=== PATIENT | female | born 1930 | race Caucasian/White ===

== ENCOUNTER 2019-07-10 15:24 | Inpatient (IN) | payer MEDICARE ==
[~2019-07-10] VITALS: Ht 165.1 cm; Wt 52.2 kg
--- NOTE | 2019-07-10 15:39 | NUR ---
PT STATES SHE HAS L3 FRACTURE AND HAS CHRONIC PAIN
[2019-07-10 15:52] LABS: BASOPHILS 0 % (0-2); EOSINOPHILS 0.1 % (0-7); HEMOGLOBIN 17.3 g/dL (12-16); IMMATURE GRANULOCYTES 0.3 % (0-5); LYMPHOCYTES 9.9 % (15-50); MCH 29.7 pg (26.0-34.0); MCHC 34.6 g/dL (31.0-37.0); MCV 85.8 fL (80.0-100.0); MEAN PLATELET VOLUME 9.4 fL (7.4-10.4); MONOCYTES 9.2 % (2-11); NEUTROPHILS 80.5 % (40-80); PLATELET COUNT 154 10x3/uL (130-400); RBC 5.83 10x6/uL (4.00-5.40); RDW 13.6 % (11.5-14.5); WBC 12.7 10x3/uL (4.8-10.8)
--- NOTE | 2019-07-10 16:08 | NUR ---
PT TO CT
[2019-07-10 16:15] LABS: CALC OSMOLALITY 291 mosm/kg (275-300); CALCIUM 9.3 mg/dL (8.5-10.1); CARBON DIOXIDE 24.8 mmol/L (21.0-32.0); CHLORIDE - SERUM 101 mmol/L (98-107); GLUCOSE 133 mg/dL (74-106); POTASSIUM - SERUM 4.1 mmol/L (3.5-5.1); SODIUM 141 mmol/L (136-145); UREA NITROGEN 39 mg/dL (7-18); eGFR NON AFRICAN AMERICAN 56 mL/min (90-120)
[2019-07-10 16:21] LABS: ALBUMIN 3.6 g/dL (3.4-5.0); ALKALINE PHOSPHATASE 88 U/L (30-120); ALT (SGPT) 30 U/L (10-68); PROTEIN - SERUM 6.8 g/dL (6.4-8.2)
[2019-07-10 16:40] LABS: APTT 29.1 SECONDS (22.8-39.4); INR 0.99 (0.85-1.17); PROTIME 13.1 SECONDS (11.6-15.0)
--- NOTE | 2019-07-10 16:44 | NUR ---
URINE TO LAB
[2019-07-10 16:54] LABS: CKMB 7.5 U/L (0.0-3.6); TROPONIN-I < 0.017 ng/mL (0.000-0.060)
[2019-07-10 16:55] LABS: GLUCOSE NEGATIVE (NEGATIVE); KETONE SMALL mg/dL (NEGATIVE); NITRITE POSITIVE (NEGATIVE)
[2019-07-10 16:56] LABS: BILIRUBIN NEGATIVE (NEGATIVE); UROBILINOGEN NORMAL (NORMAL)
[2019-07-10 16:57] LABS: EPITHELIAL CELLS 0-5 /hpf (0-5); RED CELLS - URINE OCC /hpf (0-5)
[2019-07-10 17:04] LABS: BACTERIA MODERATE /hpf (NEGATIVE)
[2019-07-10 17:49] VITALS: BP 128/68
[2019-07-10 18:09] VITALS: BP 117/69
[2019-07-10 18:21] VITALS: BP 104/49
--- NOTE | 2019-07-10 19:00 | NUR ---
PT RESTING ON BED, VISITORS AT BEDSIDE. PT AWAKE AND ALERT.
--- NOTE | 2019-07-10 19:15 | NUR ---
PT RESTING ON BED, PT AND VISITORS UPDATED ON PLAN OF CARE.
--- NOTE | 2019-07-10 19:50 | NUR ---
REPORT GIVEN TO CARLEE LOUIE
--- NOTE | 2019-07-10 19:56 | NUR ---
PATIENT ARRIVED FROM ER. PATIENT IS ALERT AND ORIENTED, RESTING COMFORTABLY IN BED. RESPIRATIONS ARE EVEN AND UNLABORED. NO S/S OF DISTRESS. NO C/O PAIN. CALL LIGHT WITHIN REACH. WILL CPOC.
--- NOTE | 2019-07-10 20:20 | NUR ---
PATIENT ATE TURKEY SANDWICH.
[2019-07-10 20:28] VITALS: BP 131/55
--- NOTE | 2019-07-10 21:00 | NUR ---
INFORMED BY CHRONOMETER ADJUSTER THAT THE PATIENT HAS BEEN NORMAL SINUS SINCE SHE ARRIVED ON FLOOR.
--- NOTE | 2019-07-10 23:50 | NUR ---
PATIENT RESTING COMFORTABLY IN BED. RESPIRATIONS ARE EVEN AND UNLABORED. NO S/S OF DISTRESS. CALL LIGHT WITHIN REACH. WILL CPOC.
[2019-07-11 00:26] VITALS: BP 102/52
--- NOTE | 2019-07-11 04:00 | NUR ---
INFORMED PEWTER CASTER THAT IN APPRXIMATELY ONE HOUR I WILL NEED MORE CARDIZEM FROM MY NEW ADMISSION IN 2113.
--- NOTE | 2019-07-11 04:20 | NUR ---
PATIENT REMAINS NORMAL SINUS.
[2019-07-11 05:54] VITALS: BP 105/53
[2019-07-11 06:48] LABS: BASOPHILS 0.1 % (0-2); EOSINOPHILS 0.1 % (0-7); HEMATOCRIT 43.4 % (36.0-48.0); IMMATURE GRANULOCYTES 0.3 % (0-5); LYMPHOCYTES 15.3 % (15-50); MCH 29.6 pg (26.0-34.0); MCHC 34.6 g/dL (31.0-37.0); MCV 85.8 fL (80.0-100.0); MEAN PLATELET VOLUME 9.4 fL (7.4-10.4); MONOCYTES 9.4 % (2-11); NEUTROPHILS 74.8 % (40-80); PLATELET COUNT 167 10x3/uL (130-400); RBC 5.06 10x6/uL (4.00-5.40); RDW 13.8 % (11.5-14.5); WBC 9.9 10x3/uL (4.8-10.8)
[2019-07-11 07:08] LABS: ALBUMIN 2.9 g/dL (3.4-5.0); BILIRUBIN - TOTAL 0.91 mg/dL (0.2-1.3); CALCIUM 8.5 mg/dL (8.5-10.1); PROTEIN - SERUM 6.1 g/dL (6.4-8.2)
[2019-07-11 07:10] LABS: ANION GAP 15.4 mmol/L (8-16); POTASSIUM - SERUM 3.4 mmol/L (3.5-5.1)
[2019-07-11 08:34] VITALS: BP 101/57
[2019-07-11 11:50] VITALS: BP 108/54
[2019-07-11 13:20] LABS: T4 THYROXIN - FREE 1.26 ng/dL (0.76-1.46); THYROID STIMULATING HORMONE 3.3 uIU/mL (0.36-3.74)
--- NOTE | 2019-07-11 14:54 | NUR ---
Rehab Note- Acute Inpatient Rehab prescreen order received. The patient has an appropriate Dx for inpatient acute rehab, she does has pending Evals at this time. Will await completion to assess the patient's physical mobility at this time. Will follow at this time. Thank you for this referral! Luann Lino RN Clinical Liaison, [facility] Rehab
--- NOTE | 2019-07-11 14:55 | NUR ---
ANGELITA HELTON NOTIFIED OF ELEVATED D-DIMER.
--- NOTE | 2019-07-11 16:12 | MORECARE ---
CASE MANAGEMENT DISCHARGE SUMMARY PATIENT: FLORENCIO HERNANDEZ UNIT: [id number] ADM DATE: 07/10/19 AGE: 88 : 32 SEX: F ROOM/BED: D.3124 AUTHOR: RERE,DOC PHYSICIAN: REFERRING PHYSICIAN: TIA ELENA MD DATE OF SERVICE: 07/11/19 Discharge Plan Patient Name: FLORENCIO HERNANDEZ Facility: [facility]:[place] : 1930 Planned Disposition: Inpatient Rehab Anticipated Discharge Date: 07/12/19 Discharge Date: Expected LOS: 2 Initial Reviewer: [email or web address] Initial Review Date: 07/11/2019 Generated: 07/11/19 5:11 pm DCPIA - Discharge Planning Initial Assessment Updated by [id number]: Carlos Arenas on 07/11/19 4:08 pm * Is the patient Alert and Oriented? Yes * How many steps to enter\exit or inside your home? * PCP NONE * Pharmacy [facility] * Preadmission Environment Home Alone * ADLs Independent * Equipment Cane Other Walker * Other Equipment LIFT CHAIR NO MEDICAL EQUIPMENT PROVIDER PREFERENCE * List name and contact numbers for known caregivers / representatives who currently or will assist patient after discharge: JUAN SINGH, FRIEND, INDIGO RHODES, ANNALISE, * Verbal permission to speak to the caregivers and representatives has been obtained from the patient. Yes * Community resources currently utilized None * Please name any agencies selected above. NONE * Additional services required to return to the preadmission environment? Yes * Can the patient safely return to the preadmission environment? Yes * Has this patient been hospitalized within the prior 30 days at any hospital? No Coverage Notice Reviewer: [id number] Mayela Arenas Notice Issued Date-Time: 07/11/2019 16:00 Notice Type: IM Discharge Notice Notice Delivered To: Patient Relationship to Patient: Industrial Maintenance Technician Name: Delivery Method: HAND - Hand Delivered Yesenia Days: Prior Verbal Notification: Recipient Understood Notice: Yes Recipient Signature: Yes Med Rec Note Co-signed by Attending: Coverage Notice Comment: Reviewer: [email or web address] Mayela Arenas Notice Issued Date-Time: 07/11/2019 15:34 Notice Type: Patient Choice Letter Notice Delivered To: Patient Relationship to Patient: Industrial Maintenance Technician Name: Delivery Method: HAND - Hand Delivered Yesenia Days: Prior Verbal Notification: Recipient Understood Notice: Yes Recipient Signature: Yes Med Rec Note Co-signed by Attending: Coverage Notice Comment: [facility] INPATIENT REHAB Patient Name: FLORENCIO HERNANDEZ Page [id number] at 1612 All edits/amendments must be made on the electronic document DICTATION DATE: 07/11/191610 PM HEAD COOK: OSKAR 07/11/191610 RPT#: [id number] DC DATE: STATUS: ADM IN [facility] [address] [place] [address] END OF REPORT
--- NOTE | 2019-07-11 16:22 | MORECARE ---
CASE MANAGEMENT DISCHARGE SUMMARY PATIENT: FLORENCIO HERNANDEZ UNIT: [id number] ADM DATE: 07/10/19 AGE: 88 : 32 SEX: F ROOM/BED: D.1387 AUTHOR: RERE,DOC PHYSICIAN: REFERRING PHYSICIAN: TIA ELENA MD DATE OF SERVICE: 07/11/19 Discharge Plan Patient Name: FLORENCIO HERNANDEZ [facility] [facility] 1930 Planned Disposition: Inpatient Rehab Anticipated Discharge Date: 07/12/19 Discharge Date: Expected LOS: 2 Initial Reviewer: [email or web address] Initial Review Date: 07/11/2019 Generated: 07/11/19 5:21 pm Comments DCP- Discharge Planning Updated by [email or web address]: Carlos Arenas on 07/11/19 3:[address] Patient Name: FLORENCIO HERNANDEZ Admission Status: ER Accout number: [id number] Admission Date: 07-10-2019 : 1930 Admission Diagnosis: Attending: TIA ELENA Current LOS: 1 Anticipated DC Date: 07-12-2019 Planned Disposition: Inpatient Rehab Primary Insurance: MEDICARE A & B PLANNED EXTERNAL PROVIDER: [facility] INPATIENT REHAB Discharge Planning Comments: CM RECEIVED ORDER FOR INPATIENT REHAB PRESCREEN. CM MET WITH PT IN ROOM TO DISCUSS DISCHARGE PLANNING AND NEEDS. PT REPORTS LIVING AT HOME INDEPENDENTLY AND ALONE. PT HAS CANE, LIFT CHAIR AND WALKER WITH NO MEDICAL EQUIPMENT PROVIDER PREFERENCE. PT HAS NO OUTSIDE SERVICES ASSISTING IN THE HOME. CM DISCUSSED AVAILABILITY OF HOME HEALTH, REHAB SERVICES AND MEDICAL EQUIPMENT. CM DISCUSSED INPATIENT REHAB PROVIDERS, LOCATIONS AND SERVICES. PT WOULD CONSIDER REHAB AT [facility], CHOICE SIGNED, REPORTS HER FRIEND WILL PICK HER UP FOR DISCHARGE HOME. IMPORTANT MESSAGE FROM MEDICARE PROVIDED AND EXPLAINED. CM WAITING THERAPY EVALUATIONS AND INPATIENT REHAB PRESCREENING FROM [facility] INPATIENT REHAB. Traveling Representative: Carlos Arenas DCPIA - Discharge Planning Initial Assessment Updated by [id number]: Carlos Arenas on 07/11/19 4:08 pm * Is the patient Alert and Oriented? Yes * How many steps to enter\exit or inside your home? * PCP NONE * Pharmacy [facility] * Preadmission Environment Home Alone * ADLs Independent * Equipment Cane Other Walker * Other Equipment LIFT CHAIR NO MEDICAL EQUIPMENT PROVIDER PREFERENCE * List name and contact numbers for known caregivers / representatives who currently or will assist patient after discharge: JUAN SINGH, FRIEND, INDIGO RHODES, FRIEND, * Verbal permission to speak to the caregivers and representatives has been obtained from the patient. Yes * Community resources currently utilized None * Please name any agencies selected above. NONE * Additional services required to return to the preadmission environment? Yes * Can the patient safely return to the preadmission environment? Yes * Has this patient been hospitalized within the prior 30 days at any hospital? No Coverage Notice Reviewer: [email or web address] Arenas Notice Issued Date-Time: 07/11/2019 16:00 Notice Type: IM Discharge Notice Notice Delivered To: Patient Relationship to Patient: Shampoo Person Name: Delivery Method: HAND - Hand Delivered Yesenia Days: Prior Verbal Notification: Recipient Understood Notice: Yes Recipient Signature: Yes Med Rec Note Co-signed by Attending: Coverage Notice Comment: Reviewer: WINNIE Arenas Notice Issued Date-Time: 07/11/2019 15:34 Notice Type: Patient Choice Letter Notice Delivered To: Patient Relationship to Patient: Shampoo Person Name: Delivery Method: HAND - Hand Delivered Yesenia Days: Prior Verbal Notification: Recipient Understood Notice: Yes Recipient Signature: Yes Med Rec Note Co-signed by Attending: Coverage Notice Comment: [facility] INPATIENT REH[facility] Last DP export: 07/11/19 3:12 p Patient Name: FLORENCIO HERNANDEZ Page [phone] at 1622 All edits/amendments must be made on the electronic document DICTATION DATE: 07/11/19 1621 SHRIMP HEADER: OSKAR 07/11/19 1621 RPT#: [id number] DC DATE: STATUS: ADM IN [facility] [address] [place] [address] END OF REPORT
[2019-07-11 16:36] VITALS: BP 115/56
--- NOTE | 2019-07-11 19:26 | NUR ---
RECEIVED BEDSIDE REPORT. PATIENT IS ALERT AND ORIENTED, RESTING COMFORTABLY IN BED. RESPIRATIONS ARE EVEN AND UNLABORED. NO S/S OF DISTRESS. NO C/O PAIN. CALL LIGHT WITHIN REACH. WILL CPOC.
[2019-07-11 21:03] VITALS: BP 134/56
--- NOTE | 2019-07-11 23:50 | NUR ---
PATIENT RESTING COMFORTABLY IN BED. RESPIRATIONS ARE EVEN AND UNLABORED. NO S/S OF DISTRESS. CALL LIGHT WITHIN REACH. WILL CPOC.
[2019-07-12 01:51] VITALS: BP 132/58
--- NOTE | 2019-07-12 05:26 | NUR ---
PATIENT GIVEN BATH AND LINENS CHANGED.
[2019-07-12 06:11] LABS: BASOPHILS 0.2 % (0-2); EOSINOPHILS 0.4 % (0-7); HEMATOCRIT 41.5 % (36.0-48.0); HEMOGLOBIN 13.8 g/dL (12-16); IMMATURE GRANULOCYTES 0.4 % (0-5); LYMPHOCYTES 24.4 % (15-50); MCH 28.7 pg (26.0-34.0); MCHC 33.3 g/dL (31.0-37.0); MCV 86.3 fL (80.0-100.0); MEAN PLATELET VOLUME 9.1 fL (7.4-10.4); MONOCYTES 10.5 % (2-11); NEUTROPHILS 64.1 % (40-80); PLATELET COUNT 164 10x3/uL (130-400); RBC 4.81 10x6/uL (4.00-5.40); RDW 13.7 % (11.5-14.5)
[2019-07-12 06:14] LABS: WBC 5.7 10x3/uL (4.8-10.8)
[2019-07-12 06:34] VITALS: BP 125/78
[2019-07-12 06:49] LABS: ANION GAP 11.3 mmol/L (8-16); CALCIUM 8.2 mg/dL (8.5-10.1); CARBON DIOXIDE 24.8 mmol/L (21.0-32.0); CREATININE - SERUM 0.8 mg/dL (0.6-1.3); POTASSIUM - SERUM 3.1 mmol/L (3.5-5.1)
[2019-07-12 08:33] VITALS: BP 119/57
--- NOTE | 2019-07-12 11:04 | NUR ---
UP OOB WITH PT ASSIST. CADIZEM GTT DCD PER DR. OLSON AND CHANED TO ORAL. WILL CONT. PLAN OF CARE.
[2019-07-12 11:37] VITALS: BP 106/58
[2019-07-12 14:14] VITALS: Ht 165.1 cm; Wt 52.2 kg
[2019-07-12 15:39] VITALS: BP 139/53
--- NOTE | 2019-07-12 15:49 | NUR ---
BLADDER SCAN [id number].
--- NOTE | 2019-07-12 19:34 | NUR ---
RECEIVED BEDSIDE REPORT. PATIENT IS ALERT AND ORIENTED, RESTING COMFORTABLY IN BED. RESPIRATIONS ARE EVEN AND UNLABORED. NO S/S OF DISTRESS. NO C/O PAIN. NEEDS MET. CALL LIGHT WITHIN REACH. WILL CPOC.
[2019-07-12 20:00] VITALS: BP 145/56
[2019-07-13] VITALS: BP 156/64
[2019-07-13 04:00] VITALS: BP 172/91
--- NOTE | 2019-07-13 04:23 | NUR ---
PATIENT BATHED AND LINEN CHANGED.
[2019-07-13 05:55] LABS: BASOPHILS 0.2 % (0-2); EOSINOPHILS 0.6 % (0-7); HEMATOCRIT 39.5 % (36.0-48.0); HEMOGLOBIN 13.3 g/dL (12-16); IMMATURE GRANULOCYTES 0.6 % (0-5); LYMPHOCYTES 21.3 % (15-50); MCHC 33.7 g/dL (31.0-37.0); MCV 86.2 fL (80.0-100.0); MONOCYTES 9.7 % (2-11); NEUTROPHILS 67.6 % (40-80); PLATELET COUNT 152 10x3/uL (130-400); RBC 4.58 10x6/uL (4.00-5.40); RDW 13.5 % (11.5-14.5); WBC 4.8 10x3/uL (4.8-10.8)
[2019-07-13 06:20] LABS: CALC OSMOLALITY 282 mosm/kg (275-300); CALCIUM 8.4 mg/dL (8.5-10.1); CARBON DIOXIDE 24.8 mmol/L (21.0-32.0); CHLORIDE - SERUM 109 mmol/L (98-107); CREATININE - SERUM 0.7 mg/dL (0.6-1.3); GLUCOSE 142 mg/dL (74-106); POTASSIUM - SERUM 3.8 mmol/L (3.5-5.1); SODIUM 142 mmol/L (136-145); eGFR NON AFRICAN AMERICAN 84 mL/min (90-120)
[2019-07-13 06:23] LABS: UREA NITROGEN 8 mg/dL (7-18)
--- NOTE | 2019-07-13 09:53 | NUR ---
PT AT BS. TELEMETRY SR. CALL LIGHT IN REACH. WILL CONT. PLAN OF CARE.
[2019-07-13 10:59] VITALS: BP 152/79
--- NOTE | 2019-07-13 13:46 | NUR ---
ANGELITA PADILLA APN TO CALL WITH NEW DISCHARGE ORDERS TO REHAB. I REVIEWED THE EMAR WITH HER AND DC THE ROCEPHRIN AND CHANGED ZOFRAN TO PO.
[2019-07-13] MEDS ORDERED: LOVENOX60 MG/0.6 SC (13:51)
[2019-07-13] MEDS ORDERED: CARDIZEM60 MG PO (13:51)
[2019-07-13 13:52] VITALS: BP 115/68
[2019-07-13] MEDS ORDERED: HUMULIN R100 UNIT/1 SC (13:53)
[2019-07-13] MEDS ORDERED: FLORAJEN3 CAPS460 MG PO (13:53)
[2019-07-13] MEDS ORDERED: LEVOFLOXACIN500 MG PO (13:55)
[2019-07-13] MEDS ORDERED: FLOMAX0.4 MG PO (13:57)
[2019-07-13] MEDS ORDERED: PROTONIX40 MG PO (13:57)
[2019-07-13] MEDS ORDERED: ACETAMINOPHEN325 MG PO (13:58)
[2019-07-13] MEDS ORDERED: ZOFRAN4 MG PO (13:58)
[2019-07-13] MEDS ORDERED: NICODERM (14:36)
--- NOTE | 2019-07-13 17:19 | NUR ---
D/C PTS L.AC PIV WITH CATHETER TIP FULLY INTACT. DISCHARGE TEACHING PROVIDING AND PAPERS SIGNED. PT VERBALIZED UNDERSTANDING AND DENIES ANY QUESTIONS OR CONCERNS. ALL BELONGINGS COLLECTED AND SENT WITH FAMILY. CALLED REPORT TO CARLEE JENKINS OF REHAB. D/C TELEMETRY AND RETURNED TO [facility]. NO FURTHER NEEDS. WILL TRANSPORT DOWN TO REHAB AT THIS TIME.
--- NOTE | 2019-07-14 08:32 | MORECARE ---
CASE MANAGEMENT DISCHARGE SUMMARY PATIENT: FLORENCIO HERNANDEZ UNIT: [id number] ADM DATE: 07/10/19 AGE: 88 : 32 SEX: F ROOM/BED: D.5186 AUTHOR: RERE,DOC PHYSICIAN: REFERRING PHYSICIAN: TIA ELENA MD DATE OF SERVICE: 07/14/19 Discharge Plan Patient Name: FLORENCIO HERNANDEZ [facility] [facility] 1930 Planned Disposition: Inpatient Rehab Anticipated Discharge Date: 07/12/19 Discharge Date: 07/13/2019 Expected LOS: 2 Initial Reviewer: [id number] Initial Review Date: 07/11/2019 Generated: 07/14/19 9:31 am Comments DCP- Discharge Planning Updated by [id number]: Carlos Arenas on 07/11/19 3:[address] Patient Name: FLORENCIO HERNANDEZ Admission Status: ER Accout number: [id number] Admission Date: 07-10-2019 : 1930 Admission Diagnosis: Attending: TIA ELENA Current LOS: 1 Anticipated DC Date: 07-12-2019 Planned Disposition: Inpatient Rehab Primary Insurance: MEDICARE A & B PLANNED EXTERNAL PROVIDER: [facility] INPATIENT REHAB Discharge Planning Comments: CM RECEIVED ORDER FOR INPATIENT REHAB PRESCREEN. CM MET WITH PT IN ROOM TO DISCUSS DISCHARGE PLANNING AND NEEDS. PT REPORTS LIVING AT HOME INDEPENDENTLY AND ALONE. PT HAS CANE, LIFT CHAIR AND WALKER WITH NO MEDICAL EQUIPMENT PROVIDER PREFERENCE. PT HAS NO OUTSIDE SERVICES ASSISTING IN THE HOME. CM DISCUSSED AVAILABILITY OF HOME HEALTH, REHAB SERVICES AND MEDICAL EQUIPMENT. CM DISCUSSED INPATIENT REHAB PROVIDERS, LOCATIONS AND SERVICES. PT WOULD CONSIDER REHAB AT [facility], CHOICE SIGNED, REPORTS HER FRIEND WILL PICK HER UP FOR DISCHARGE HOME. IMPORTANT MESSAGE FROM MEDICARE PROVIDED AND EXPLAINED. CM WAITING THERAPY EVALUATIONS AND INPATIENT REHAB PRESCREENING FROM [facility] INPATIENT REH[facility]. Care Taker: Carlos Arenas DCPIA - Discharge Planning Initial Assessment Updated by [id number]: Carlos Arenas on 07/11/19 4:08 pm * Is the patient Alert and Oriented? Yes * How many steps to enter\exit or inside your home? * PCP NONE * Pharmacy [facility] * Preadmission Environment Home Alone * ADLs Independent * Equipment Cane Other Walker * Other Equipment LIFT CHAIR NO MEDICAL EQUIPMENT PROVIDER PREFERENCE * List name and contact numbers for known caregivers / representatives who currently or will assist patient after discharge: JUAN SINGH, FRIEND, INDIGO RHODES, FRIEND, * Verbal permission to speak to the caregivers and representatives has been obtained from the patient. Yes * Community resources currently utilized None * Please name any agencies selected above. NONE * Additional services required to return to the preadmission environment? Yes * Can the patient safely return to the preadmission environment? Yes * Has this patient been hospitalized within the prior 30 days at any hospital? No Coverage Notice Reviewer: WINNIE Arenas Notice Issued Date-Time: 07/11/2019 16:00 Notice Type: IM Discharge Notice Notice Delivered To: Patient Relationship to Patient: Electronic Court Recorder Name: Delivery Method: HAND - Hand Delivered Yesenia Days: Prior Verbal Notification: Recipient Understood Notice: Yes Recipient Signature: Yes Med Rec Note Co-signed by Attending: Coverage Notice Comment: Reviewer: WINNIE Arenas Notice Issued Date-Time: 07/11/2019 15:34 Notice Type: Patient Choice Letter Notice Delivered To: Patient Relationship to Patient: Electronic Court Recorder Name: Delivery Method: HAND - Hand Delivered Yesenia Days: Prior Verbal Notification: Recipient Understood Notice: Yes Recipient Signature: Yes Med Rec Note Co-signed by Attending: Coverage Notice Comment: [facility] INPAT[facility] Last DP export: 07/11/19 3:22 p Patient Name: FLORENCIO HERNANDEZ Page [phone] at 0832 All edits/amendments must be made on the electronic document DICTATION DATE: 07/14/19830 PROPERTY ADJUSTER: OSKAR 07/14/19830 RPT#: [id number] DC DATE:07/13/19 STATUS: DIS IN [facility] [address] [place] [address] END OF REPORT
== END 2019-07-13 17:37 | DRG 690 ==
LOC: D.ER 15:24 → D.M2 19:10 → D.SDCHOLD 07-12 14:02 → D.M2 07-13 17:37
PROVIDERS: Family Medicine; ADMIT Internal Medicine Nephrology; ATTEND Internal Medicine Nephrology
DX: N39.0 Urinary tract infection, site not specified (principal); I48.20 Chronic atrial fibrillation, unspecified; M62.82 Rhabdomyolysis; E44.0 Moderate protein-calorie malnutrition; N17.9 Acute kidney failure, unspecified; R55 Syncope and collapse; D75.89 Other specified diseases of blood and blood-forming organs; E11.9 Type 2 diabetes mellitus without complications; E87.6 Hypokalemia; S82.61XA Displaced fracture of lateral malleolus of right fibula, initial encounter for closed fracture; W19.XXXA Unspecified fall, initial encounter

== ENCOUNTER 2019-07-13 17:06 | Inpatient (IN) | payer MEDICARE ==
[~2019-07-13] VITALS: Ht 165.1 cm; Wt 52.2 kg
[~2019-07-13 17:06] MED LIST: ACETAMINOPHEN325 MG PO; CARDIZEM60 MG PO; FLOMAX0.4 MG PO; FLORAJEN3 CAPS460 MG PO; HUMULIN R100 UNIT/1 SC; LEVOFLOXACIN500 MG PO; LOVENOX60 MG/0.6 SC; NICODERM; PROTONIX40 MG PO; ZOFRAN4 MG PO
--- NOTE | 2019-07-13 17:30 | NUR ---
RECIEVED PER BED TO ROOM 1118A.CL IN PLACE.ORIENTED TO ROOM AND SURROUNDINGS.
--- NOTE | 2019-07-13 19:47 | NUR ---
ADMIT TO 1118A FOR PHYSICAL REHAB AND SERVICES OF DR NUNEZ FOR DX OF DISUSE MYOPATHY. AWAKE AND ALERT. RESPIRATIONS UNLABORED. HAS BOOT TO WEAR WHEN UP. ALERT AND ORIENTED. CHEERFUL AND COOPERATIVE. NO DISTRESS NOTED. CALL LIGHT IN REACH.
[2019-07-13 20:14] VITALS: BP 126/62
[2019-07-13 20:17] VITALS: BP 126/62; BMI 19.1
--- NOTE | 2019-07-14 01:31 | NUR ---
RESTING IN BED WITH RESPIRATIONS UNLABORED. NO DISTRESS NOTED.
--- NOTE | 2019-07-14 05:02 | NUR ---
QUEIT HOURS. NO ACUTE CHANGES IN CONDITION THIS SHIFT. RESTING IN BED WITH NO ACUTE DISTRESS NOTED. CALL LIGHT IN REACH.
[2019-07-14 08:35] LABS: ALBUMIN 2.6 g/dL (3.4-5.0); ALKALINE PHOSPHATASE 74 U/L (30-120); ALT (SGPT) 29 U/L (10-68); BILIRUBIN - TOTAL 0.74 mg/dL (0.2-1.3); CALC OSMOLALITY 285 mosm/kg (275-300); CALCIUM 8.4 mg/dL (8.5-10.1); CARBON DIOXIDE 26.6 mmol/L (21.0-32.0); CHLORIDE - SERUM 107 mmol/L (98-107); CREATININE - SERUM 0.7 mg/dL (0.6-1.3); GLUCOSE 114 mg/dL (74-106); POTASSIUM - SERUM 3.6 mmol/L (3.5-5.1); PROTEIN - SERUM 5.3 g/dL (6.4-8.2); SODIUM 144 mmol/L (136-145); UREA NITROGEN 7 mg/dL (7-18); eGFR NON AFRICAN AMERICAN 84 mL/min (90-120)
[2019-07-14 10:18] VITALS: Ht 165.1 cm; Wt 52.2 kg
[2019-07-14 11:25] VITALS: BP 143/74
--- NOTE | 2019-07-14 18:32 | NUR ---
SITTING UP IN BED IN ROOM VISITING WITH FRIENDS. APPEARS TO TRY TO REDIRECT CONVERSATIONS AST TIMES WHEN QUESTIONS ARE ASKED ABOUT HER LIFE.
--- NOTE | 2019-07-14 19:30 | NUR ---
PT IS RESTING IN BED WITH EYES OPEN. ALERT AND ORIENTED X 3. SHE DENIES ACUTE DISCOMFORT AT THIS TIME. NO NEEDS VOICED. PT STATES HER FRACTURED RIGHT ANKLE HURTS AT TIMES, BUT NOT RIGHT NOW. PT IS VERY TALKATIVE. SR'S ARE UP X 2 IN BED. CALL LIGHT AND BEDSIDE TABLE ARE WITHIN EASY REACH.
--- NOTE | 2019-07-14 21:34 | NUR ---
PT IS RESTING QUIETLY IN BED WITH EYES CLOSED. RESPS ARE EVEN AND UNLABORED. NO ACUTE DISTRESS NOTED.
--- NOTE | 2019-07-15 00:01 | NUR ---
RESTING IN BED WITH EYES CLOSED.
[2019-07-15 00:36] VITALS: BP 157/74
--- NOTE | 2019-07-15 03:00 | NUR ---
PT RESTING IN BED WITH EYES CLOSED. NO DISTRESS NOTED.
--- NOTE | 2019-07-15 06:07 | NUR ---
I have reviewed this patient and I concur with the Shift Assessment completed by the Licensed Practical Nurse today this shift.
[2019-07-15 08:00] VITALS: BP 147/58
--- NOTE | 2019-07-15 14:15 | NUR ---
SHE IS ORIENTED X4 BUT OFTEN TRIES TO SWITCH SUBJECTS WHEN ASKED ABOUT RECENT PAST. SHE WILL ALSO ANSWER QUESTIONS WITH QUESTIONS. HER SPEECH IS CLEAR BUT SHE RAMBLES AT TIMES. SHE HAS BEEN INCONT OF B/B IN BED TODAY. HAS ORTHO BOOT FOR RLE.
--- NOTE | 2019-07-15 16:23 | NUR ---
RESTING QUIETLY ON SIDE. EYES CLOSED. CALL LIGHT IN REACH. SIDE RAILS UP X2. BED IN LOWEST POSITION.
--- NOTE | 2019-07-15 19:37 | NUR ---
PT IS RESTING IN BED WITH EYES OPEN. ALERT AND ORIENTED X 3. DENIES ACUTE PAIN OR DISCOMFORT AT THIS TIME. BED LINENS NOTED ON THE FLOOR. PT STATES SHE THREW THEM THERE AFTER COFFEE WAS SPILLED ON THE AT SUPPER TIME. BOTTOM SHEET HAS A BED PAD OVER A LARGE COFFEE STAIN. PT REFUSING TO GET UP OUT OF BED TO CHANGE THE LINENS AT THIS TIME. SALINE LOCK NOTED TO LFA. SR'S ARE UP X 2 IN BED. CALL LIGHT AND BEDSIDE TABLE ARE WITHIN EASY REACH.
[2019-07-15 21:00] VITALS: BP 143/73
--- NOTE | 2019-07-15 22:47 | NUR ---
PT RESTING QUIETLY IN BED WITH EYES CLOSED. NO ACUTE DISTRESS NOTED.
--- NOTE | 2019-07-16 01:36 | NUR ---
I have reviewed this patient and I concur with the Shift Assessment completed by the Licensed Practical Nurse today this shift.
--- NOTE | 2019-07-16 04:42 | NUR ---
RESTING QUIETLY IN BED WITH EYES CLOSED. RESPS ARE EVEN AND UNLABORED. NO ACUTE DISTRESS NOTED.
[2019-07-16 08:00] VITALS: BP 133/65
--- NOTE | 2019-07-16 16:23 | NUR ---
SITTING UP IN BED WATCHING TV. CALL LIGHT IN REACH. BED IN LOWEST POSITION. SIDE RAILS UP X2.
--- NOTE | 2019-07-16 19:30 | NUR ---
PT ASSISTED INTO BED WITH SBA. ALERT AND ORIENTED X 3. DENIES ACUTE PAIN OR DISCOMFORT AT THIS TIME. NO NEEDS VOICED. PT ENCOURAGED TO CALL ME FOR ASSIST TO THE BATHROOM OR WITH INCONT CARE IF NEEDED. PT TELLS ME SHE DOES NOT VOID AT NIGHT, BUT IS THEN INC. OF URINE. PT STATED SHE WOULD CALL IF NEEDED. CALL LIGHT AND BEDSIDE TABLE ARE WITHIN EASY REACH.
[2019-07-16 20:00] VITALS: BP 121/62
--- NOTE | 2019-07-16 21:48 | NUR ---
PT IS RESTING QUIETLY IN BED WITH EYES CLOSED. RESPS ARE EVEN AND UNLABORED. NO ACUTE DISTRESS NOTED.
--- NOTE | 2019-07-17 00:01 | NUR ---
PT ASSISTED TO THE BATHROOM WITH CGA. VOIDED WITHOUT DIFFICULTY. NO FURTHER NEEDS VOICED.
--- NOTE | 2019-07-17 03:26 | NUR ---
I have reviewed this patient and I concur with the Shift Assessment completed by the Licensed Practical Nurse today this shift.
--- NOTE | 2019-07-17 06:12 | NUR ---
PT RESTING IN BED WITH EYES CLOSED. AWOKE EASILY TO VERBAL STIMULI. NO INCONTINENCE NOTED. PT ASSISTED TO THE BATHROOM. VOIDED WITHOUT DIFFICULTY.
[2019-07-17 06:58] LABS: BASOPHILS 0 % (0-2); EOSINOPHILS 0.6 % (0-7); HEMATOCRIT 36.5 % (36.0-48.0); HEMOGLOBIN 11.9 g/dL (12-16); IMMATURE GRANULOCYTES 0.6 % (0-5); LYMPHOCYTES 26.9 % (15-50); MCH 28.3 pg (26.0-34.0); MCHC 32.6 g/dL (31.0-37.0); MCV 86.7 fL (80.0-100.0); MEAN PLATELET VOLUME 9.2 fL (7.4-10.4); MONOCYTES 12.4 % (2-11); NEUTROPHILS 59.5 % (40-80); RBC 4.21 10x6/uL (4.00-5.40); RDW 13.5 % (11.5-14.5); WBC 4.8 10x3/uL (4.8-10.8)
[2019-07-17 07:11] LABS: PLATELET COUNT 193 10x3/uL (130-400)
[2019-07-17 07:18] LABS: ANION GAP 11.5 mmol/L (8-16); CALCIUM 8.2 mg/dL (8.5-10.1); CREATININE - SERUM 0.8 mg/dL (0.6-1.3); POTASSIUM - SERUM 3.5 mmol/L (3.5-5.1)
[2019-07-17 09:48] VITALS: BP 138/69
--- NOTE | 2019-07-17 15:32 | NUR ---
PATIENT ADMITTED TO REHAB FROM ACUTE FLOOR. PATIENT HAS NO PCP. DME AT HOME IS A CANE, WALKER AND LIFT CHAIR. DISCHARGE PLANS ARE FOR PATIENT TO RETURN HOME. WILL CONTINUE TO FOLLOW WITH PATIENT.
--- NOTE | 2019-07-17 16:47 | RHP ---
PATIENT: FLORENCIO HERNANDEZ MEDICAL RECORD: [id number] ACCOUNT: [id number] LOCATION:[facility]1118 : 32 ADMISSION DATE: 07/13/19 REHABILITATION HISTORY AND PHYSICAL EXAMINATION POST ADMISSION PHYSICIAN EXAMINATION ADMITTING DIAGNOSIS: Disuse myopathy. 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 She is an 88-year-old female patient who presented to the ER after being found on the floor by a friend. They did not know how long she had been down, but she had found her on the floor on Wednesday afternoon. Upon arrival to the ER, she was in AFib with rapid ventricular response. She was complaining of some left-sided jaw pain and right ankle pain. Her CK was 1351. Her CK-MB was 7.5. Cardiology consult was done. She was placed on a Cardizem drip and converted over to oral medications. The patient was noted to have a displaced fracture of the right lateral malleolus. She had been seen by orthopedic surgery, who recommends nonweightbearing to the ankle with a pneumatic boot. She has been seen and followed by PT throughout her stay after speech therapy. I saw her during her stay. She needs to be monitored closely due to recent atrial fib and rapid ventricular response. She is on telemetry. She needs pain control, recent fall resulting in right ankle fracture, monitoring her lab values. She has proximal muscle weakness, nonweightbearing to her right ankle and has a pneumatic boot. She has got balance deficits, decreased activity tolerance, decreased range of motion, decreased strength and gait disturbance. She is at risk for falls. She has got low endurance, unsteady on her feet, fatigues easily and got inability to care for herself. She does live alone and for these reasons will need to be in rehab to get her back to her prior level of functioning. She was independent with ADLs and mobility prior to this, using a rolling walker and a cane. Currently, she is max assist for ADLs, mod assist to max assist for her mobility with nonweightbearing to her right ankle, in the pneumatic boot. She plans to return home at her prior level of functioning. COMORBIDITIES: Include oral dysphagia, disuse myopathy, atrial fib, rhabdomyolysis, diabetes, protein-calorie malnutrition, displaced fracture of her right lateral malleolus, acute mental status changes and tobacco use. PAST MEDICAL HISTORY: Significant for cataracts, diabetes, atrial fib, rapid ventricular response in the past, arthritis. PAST SURGICAL HISTORY: Includes knee surgery, hysterectomy and a right mastectomy. ALLERGIES: CODEINE AND SHRIMP. CURRENT MEDICATIONS: Include Floranex 1 cap daily. She is on Flomax 0.4 mg daily, Nicoderm patch daily, Levaquin 500 mg daily, Protonix 40 mg daily, low-resistant sliding scale of insulin. She is on Cardizem 60 b.i.d., Zofran 4 mg every 4 hours p.r.n. She is on Lovenox 60 mg every 12 hours and Tylenol 650 every 4 hours. HABITS: Does have a history of tobacco use. FAMILY HISTORY: Noncontributory. HISTORY AND PHYSICAL [id number] FLORENCIO HERNANDEZ SOCIAL HISTORY: The patient hopes to return back home and get back to her prior level of functioning. REVIEW OF SYSTEMS: GENERAL: Does complain of weakness and fatigue. HEENT: Denies cold, cough, or congestion. CARDIOVASCULAR: Denies chest pain. PHYSICAL EXAMINATION: VITAL SIGNS: Stable, afebrile. GENERAL: An elderly female, in no acute distress upon exam. HEENT: Normocephalic and atraumatic. Mucosa moist. NECK: Supple. No lymphadenopathy. LUNGS: Clear in upper echeverria. HEART: Regular rate and rhythm at this time. ABDOMEN: Soft, benign and nondistended. Positive bowel sounds times 4. EXTREMITIES: She does have a pneumatic boot to her lower extremity. NEUROLOGIC: She does have noted weakness. LABORATORY DATA: Sodium 144, potassium 3.6, BUN and creatinine of 7 and 0.7, blood sugar is noted to be 114. Her LFTs were all within normal limits. 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 The patient has potential to make improvement. We instituted the following multidisciplinary therapies include, but not limited to physical, occupational, respiratory, speech, nutritional services, prosthetics and orthotics. Given her complex medical condition and risk for more complications, rehabilitation services cannot be provided at a low level of care such as skilled nurse facility. PLAN: 1. [facility] inpatient therapy to include the following disciplines; A. Physical therapy to improve gait, all transfer skills and bed mobility to a modified independent level. B. Occupational therapy to improve activities of daily living. C. Case management to assist with discharge planning and placement options. D. Nutrition to assist with nutritional needs. E. Rehabilitation nursing to assist in monitoring the patient's underlying medical conditions and to assist with any type of bowel or bladder management. 2. The patient's current medication and medical care will be continued. 3. The patient will be placed on standard fall precautions. 4. The patient's estimated length of stay is approximately 7-10 days. 5. We will discuss the patient with the care team staff meeting this week. We will continue on the Lovenox until we get her up and able to ambulate. She is going to continue to be nonweightbearing on that one extremity and I will see again in the a.m. TRANSINT:[id number] Voice Confirmation ID: [id number] DOCUMENT ID: [id number] RAMON notes whether there has been none or any medical/functional change since admission: HISTORY AND PHYSICAL [id number] FLORENCIO HERNANDEZ - No change since pre-admission screen. RAMON attests patient continues to be appropriate for IRF: - Continues to be appropriate. PRINCESS NUNEZ MD at 1647 CC: [id number] DICTATION DATE: 07/14/19907 APPLICATION ARCHITECT MANAGER: 07/14/19 1108 ADM IN [place] [id number] [place] [address]
--- NOTE | 2019-07-17 19:30 | NUR ---
PT IS RESTING IN BED WITH EYES OPEN. ALERT AND ORIENTED X 3. DENIES ACUTE PAIN OR DISCOMFORT AT THIS TIME.
[2019-07-17 20:41] VITALS: BP 135/70
--- NOTE | 2019-07-17 22:21 | NUR ---
RESTING QUIETLY IN BED WITH EYES CLOSED. RESPS ARE EVEN AND UNLABORED. NO ACUTE DISTRESS NOTED.
--- NOTE | 2019-07-18 00:45 | NUR ---
PT IS RESTING IN BED WATCHING TV. NO ACUTE DISTRESS NOTED.
--- NOTE | 2019-07-18 01:15 | NUR ---
I have reviewed this patient and I concur with the Shift Assessment completed by the Licensed Practical Nurse today this shift.
--- NOTE | 2019-07-18 04:08 | NUR ---
PT RESTING IN BED TALKING TO HER ROOMMATE. NO NEEDS VOICED.
--- NOTE | 2019-07-18 08:00 | NUR ---
SHIFT ASSMT COMPLETED.BREAKFAST GIVEN.UP IN WC.CL IN REACH.
--- NOTE | 2019-07-18 14:17 | NUR ---
Nutrition Follow-up: Diet: Cardiac PO intake: 25% average. She reports that her appetite is fine but that her jaw hurts to chew from falling. She would like a soft diet. She would also like Ensure on meal trays. She gave food preferences. Last BM: none recorded since admit x 5 days now at least. WT: 115# (07/14/19) Meds noted: SSI. POC Glu 122(H) Skin: stage II PU to coccyx Will update diet order with food preferences. Will add Ensure with meal trays. Encouraged PO intake, especially of protein rich foods. RD following.
[2019-07-18 15:02] VITALS: BP 130/60
--- NOTE | 2019-07-18 19:50 | NUR ---
AWAKE AND ALERT. RESTING IN BED WITH RESPIRATIONS UNLABORED. TALKING WITH DAUGHTER ON PHONE. NO ACUTE DISTRESS NOTED. CALL LIGHT IN REACH.
[2019-07-19 00:07] VITALS: BP 122/60
--- NOTE | 2019-07-19 02:30 | NUR ---
SLEEPING WITH RESPIRATIONS UNLABORED. NO DISTRESS NOTED. CALL LIGHT IN REACH.
--- NOTE | 2019-07-19 04:53 | NUR ---
QUIET HOURS. NO ACUTE CHANGES IN CONDITION THIS SHIFT. RESTING IN BED WITH RESPRIATIONS UNLABORED. NO DISTRESS NOTED. CALL LIGHT IN REACH.
--- NOTE | 2019-07-19 08:00 | NUR ---
SHIFT ASSMT COMPLETED.BREAKFAST GIVEN IN THERAPY ROOM.UP IN WC.
[2019-07-19 09:36] VITALS: BP 134/66
[2019-07-19 10:51] LABS: BASOPHILS 0.2 % (0-2); EOSINOPHILS 0.7 % (0-7); HEMATOCRIT 39.9 % (36.0-48.0); HEMOGLOBIN 12.8 g/dL (12-16); IMMATURE GRANULOCYTES 0.3 % (0-5); LYMPHOCYTES 18.2 % (15-50); MCH 28.4 pg (26.0-34.0); MCHC 32.1 g/dL (31.0-37.0); MCV 88.7 fL (80.0-100.0); MEAN PLATELET VOLUME 9.3 fL (7.4-10.4); MONOCYTES 7.9 % (2-11); NEUTROPHILS 72.7 % (40-80); PLATELET COUNT 209 10x3/uL (130-400); RDW 13.8 % (11.5-14.5)
[2019-07-19 11:00] LABS: ANION GAP 9.9 mmol/L (8-16); CALCIUM 8.3 mg/dL (8.5-10.1); CARBON DIOXIDE 29.5 mmol/L (21.0-32.0); CREATININE - SERUM 0.9 mg/dL (0.6-1.3); POTASSIUM - SERUM 3.4 mmol/L (3.5-5.1)
--- NOTE | 2019-07-19 15:50 | NUR ---
CARE TEAM MEETING: PATIENT AND 2 OF HER FRIENDS ATTENDED THE MEETING. THEIR QUESTIONS AND CONCERNS WERE ADDRESSED. AT DISCHARGE PATIENT WILL DC TO A SNF DUE TO HER BEING NON WEIGHT BEARING AND SHE LIVES ALONE. WILL CONTINUE TO FOLLOW WITH PATIENT AND WILL MAKE REFERRAL TO WHICH SNF SHE CHOSES. PATIENT WILL BE RA AT NEXT MEETING. TENATIVE DISCHARGE DATE IS 07/27/19.
--- NOTE | 2019-07-19 19:22 | NUR ---
PT LYING IN BED. CL IN REACH. DENIES NEEDS OR PAIN AT THIS TIME. BED IN LOW SIDE RAILS X2. A/O X4. LUNGS CLEAR. BOWEL ACTIVE X4. RESP EVEN AND UNLABORED. WILL CONTINUE TO MONITOR.
[2019-07-19 20:39] VITALS: BP 132/56
[2019-07-20 09:21] VITALS: BP 138/61
--- NOTE | 2019-07-20 10:14 | NUR ---
LAYING IN BED RESTING QUIETLY. NURSE ASST PT TO LAY ON SIDE TO GET PRESSURE OFF BUTTOCKS. SHE HAS POOR RECALL BUT IS ORIENTED X4 THIS AM.
--- NOTE | 2019-07-20 18:04 | NUR ---
LAYING IN BED WATCHING TV. DENIES NEEDS. CALL LIGHT IN REACH
[2019-07-20 22:57] VITALS: BP 153/72
--- NOTE | 2019-07-21 04:19 | NUR ---
I have reviewed this patient and I concur with the Shift Assessment completed by the Licensed Practical Nurse today this shift.
[2019-07-21 07:11] LABS: BASOPHILS 0 % (0-2); HEMOGLOBIN 12.7 g/dL (12-16); IMMATURE GRANULOCYTES 0.2 % (0-5); LYMPHOCYTES 24.6 % (15-50); MCHC 32.6 g/dL (31.0-37.0); MONOCYTES 11.4 % (2-11); NEUTROPHILS 62.8 % (40-80); PLATELET COUNT 195 10x3/uL (130-400); RBC 4.38 10x6/uL (4.00-5.40); WBC 5.1 10x3/uL (4.8-10.8)
[2019-07-21 07:40] LABS: CALCIUM 8.6 mg/dL (8.5-10.1); CARBON DIOXIDE 28.6 mmol/L (21.0-32.0); CHLORIDE - SERUM 107 mmol/L (98-107); CREATININE - SERUM 0.7 mg/dL (0.6-1.3); SODIUM 142 mmol/L (136-145); UREA NITROGEN 8 mg/dL (7-18); eGFR NON AFRICAN AMERICAN 84 mL/min (90-120)
[2019-07-21 07:47] LABS: CALC OSMOLALITY 281 mosm/kg (275-300); GLUCOSE 113 mg/dL (74-106)
--- NOTE | 2019-07-21 08:30 | NUR ---
SITTING UP IN THERAPY GYM WORKINNG WITH THERAPIST.
[2019-07-21 09:52] VITALS: BP 127/55
--- NOTE | 2019-07-21 14:20 | NUR ---
LAYING DOWN IN BED RESTING QUIETLY. NO S/S DISTRESS. BED IN LOWEST POSITION, CALL LIGHT IN REACH.
--- NOTE | 2019-07-21 19:25 | NUR ---
PT LYING IN BED WATCHING TV. CL IN REACH. DENIES NEEDS OR PAIN AT THIS TIME. BED IN LOW SIDE RAILS X2. A/O X4. LUNGS CLEAR. BOWEL ACTIVE X4. RESP EVEN AND UNLABORED. BED ALARM WAIVER ON CHART. WILL CONTINUE TO MONITOR.
[2019-07-22 02:18] VITALS: BP 112/49
--- NOTE | 2019-07-22 02:19 | NUR ---
I have reviewed this patient and I concur with the Shift Assessment completed by the Licensed Practical Nurse today this shift.
[2019-07-22 08:00] VITALS: BP 110/49
--- NOTE | 2019-07-22 08:00 | NUR ---
SHIFT ASSMT COMPLETED.BREAKFAST GIVEN.CL IN REACH.
--- NOTE | 2019-07-22 12:00 | NUR ---
SITTING UP ON SIDE OF BED EATING LUNCH.
--- NOTE | 2019-07-22 18:22 | NUR ---
PT IN BED, PLEASANT, NO NEEDS NOTED OR VERBALIZED, FALL PRECAUTIONS IN PLACE
[2019-07-22 20:13] VITALS: BP 132/61
[2019-07-23 08:00] VITALS: BP 131/58
--- NOTE | 2019-07-23 08:00 | NUR ---
SHIFT ASSMT COMPLETED.CL IN REACH.BREAKFAST GIVEN.
--- NOTE | 2019-07-23 12:00 | NUR ---
SITTING UP IN BED EATING LUNCH.
[2019-07-23 19:41] VITALS: BP 129/62
--- NOTE | 2019-07-23 23:25 | NUR ---
PT IN BED WATCHING TV, GREETED PT, PLACED NAME ON BOARD,NO NEEDS VERBALIZED
[2019-07-24 07:03] LABS: BASOPHILS 0.2 % (0-2); EOSINOPHILS 1.2 % (0-7); HEMATOCRIT 39.9 % (36.0-48.0); HEMOGLOBIN 12.7 g/dL (12-16); LYMPHOCYTES 31.2 % (15-50); MCH 28.5 pg (26.0-34.0); MCHC 31.8 g/dL (31.0-37.0); MCV 89.7 fL (80.0-100.0); MEAN PLATELET VOLUME 9.5 fL (7.4-10.4); MONOCYTES 9.1 % (2-11); NEUTROPHILS 58.3 % (40-80); RBC 4.45 10x6/uL (4.00-5.40); RDW 14.3 % (11.5-14.5); WBC 4.9 10x3/uL (4.8-10.8)
[2019-07-24 07:15] LABS: PLATELET COUNT 236 10x3/uL (130-400)
[2019-07-24 08:00] VITALS: BP 148/68
[2019-07-24 08:51] LABS: ANION GAP 8.6 mmol/L (8-16); CALCIUM 8.8 mg/dL (8.5-10.1); CARBON DIOXIDE 29.4 mmol/L (21.0-32.0); CREATININE - SERUM 0.8 mg/dL (0.6-1.3)
--- NOTE | 2019-07-24 09:46 | NUR ---
SITTING IN WC IN GYM. HAS BEEN UP WORKING WITH THERAPY THIS AM. DENIES NEEDS OR C/O.
--- NOTE | 2019-07-24 13:46 | NUR ---
Nutrition Follow-up: Diet: Cardiac Mech Soft + Ensure TID PO intake: ~33% average x last 6 meals Last BM: 07/22/19 x 3. WT: 115# (07/14/19), no new WT Meds reviewed. Labs noted: Glu 118(H). Recommend continue current diet and oral nutrition supplement. Encouraged PO intake, encouraged write-ins on menu. RD following.
--- NOTE | 2019-07-24 18:01 | NUR ---
SITTING UP IN BED FINISHING SUPPER. DENIES NEEDS. CALL LIGHT IN REACH
--- NOTE | 2019-07-24 19:17 | NUR ---
PT IN BED A&O, PLEASANT, NO NEEDS VERBALIZED
--- NOTE | 2019-07-25 03:17 | NUR ---
PT IN BED ASLEEP, NO NEEDS NOTED, FLUIDS AND CALL LIGHT WITHIN REACH, BED IN LOWEST POSITION
[2019-07-25 06:56] VITALS: BP 126/58
[2019-07-25 08:03] VITALS: BP 152/55
--- NOTE | 2019-07-25 12:31 | NUR ---
SITTING UP IN WC IN ROOM EATING LUNCH. HAS BEEN WORKING WITH THERAPY THIS MORNING BUT DENIES INCREASED PAIN. DENIES NEEDS. CALL LIGHT IN REACH
--- NOTE | 2019-07-25 16:16 | NUR ---
REFERRAL FAXED TO THE [facility] FOR POSSIBLE ADMISSION ON 07/27/19. WILL CONTINUE TO FOLLO WITH PATIENT.
--- NOTE | 2019-07-25 17:48 | NUR ---
SITTING UP IN BED EATING SUPPER. APPETITE FAIR. DENIES INCREASED PAIN OR NEEDS
--- NOTE | 2019-07-25 19:20 | NUR ---
PT LYING IN BED WATCHING TV.CL IN REACH. DENIES NEEDS OR PAIN AT THIS TIME. BED IN LOW SIDE RAILS X2. A/O X4. LUNGS CLEAR. BOWEL ACTIVE X4. RESP EVEN AND UNLABORED. WILL CONTINUE TO MONITOR.
[2019-07-25 20:52] VITALS: BP 147/64
--- NOTE | 2019-07-26 01:16 | NUR ---
PT LYING IN BED EYES CLOSED RESTING. RR EVEN AND UNLABORED. CL IN REACH
--- NOTE | 2019-07-26 05:52 | NUR ---
I have reviewed this patient and I concur with the Shift Assessment completed by the Licensed Practical Nurse today this shift.
[2019-07-26 07:22] LABS: BASOPHILS 0.3 % (0-2); EOSINOPHILS 1.4 % (0-7); HEMATOCRIT 38.2 % (36.0-48.0); HEMOGLOBIN 12.4 g/dL (12-16); IMMATURE GRANULOCYTES 0.3 % (0-5); LYMPHOCYTES 33.6 % (15-50); MCH 29.2 pg (26.0-34.0); MCHC 32.5 g/dL (31.0-37.0); MCV 89.9 fL (80.0-100.0); MEAN PLATELET VOLUME 9.2 fL (7.4-10.4); MONOCYTES 11.2 % (2-11); NEUTROPHILS 53.2 % (40-80); PLATELET COUNT 206 10x3/uL (130-400); RBC 4.25 10x6/uL (4.00-5.40); RDW 14.2 % (11.5-14.5); WBC 3.6 10x3/uL (4.8-10.8)
[2019-07-26 07:33] LABS: ANION GAP 11.6 mmol/L (8-16); CARBON DIOXIDE 29.5 mmol/L (21.0-32.0); CREATININE - SERUM 0.8 mg/dL (0.6-1.3); POTASSIUM - SERUM 4.1 mmol/L (3.5-5.1)
--- NOTE | 2019-07-26 08:00 | NUR ---
SHIFT ASSMT COMPLETED.BREAKFAST GIVEN.CL IN REACH.
--- NOTE | 2019-07-26 12:00 | NUR ---
EATING LUNCH.DENIES NEEDS.
--- NOTE | 2019-07-26 14:33 | NUR ---
CARE TEAM MEETING: PATIENT IS DOING WELL IN [place] AND WILL DISCHARGE TO THE [facility] IN THE AM. WILL CONTINUE TO FOLLOW WITH PATIENT.
--- NOTE | 2019-07-26 19:21 | NUR ---
AWAKE AND ALERT. RESTING IN BED WITH RESPIRATIONS UNALBORED. TALKING WITH SON. NO DISTRESS NOTED. CALL LIGHT IN REACH.
--- NOTE | 2019-07-27 01:11 | NUR ---
RESTING IN BED WITH RESPRIATIONS UNLABORED. NO DISTRESS NOTED. CALL LIGHT IN REACH.
--- NOTE | 2019-07-27 02:43 | NUR ---
CONTINUES SLEEPING WITH NO DISTRESS NOTED. CALL LIGHT IN REACH.
--- NOTE | 2019-07-27 05:38 | NUR ---
QUIET HOURS. NO ACUTE CHANGES IN CONDITION THIS SHIFT. NO ACUTE DISTRESS NOTED. CALL LIGHT IN REACH.
[2019-07-27 07:37] VITALS: BP 129/72
--- NOTE | 2019-07-27 08:00 | NUR ---
SHIFT ASSMT COMPLETED.CL IN REACH.PLAN TO DC TODAY TO THE [facility].
--- NOTE | 2019-07-27 09:41 | NUR ---
PATIENT DISCHARGING TO THE [facility] TODAY VIA FACILITY VAN. NO HOME HEALTH OR DME NEEDED AT THIS TIME. DR. DOVER 08/16/2019 @ 2:45. PATIENT CHOICE FORM FOR SNF SIGNED, NO COMPARE DATA REVIEWED PATIENT FAMILY VISITED FACILITIES. PATIENT VOICED UNDERSTANDING. [facility] FORMS SIGNED AND EXPLAINED , ONE GIVEN TO PATIENT AND ONE FILED IN CHART.DISCHARGE INSTRUCTIONS FAXED TO SNF AND REVIEWEDW ITH PATIENT.
--- NOTE | 2019-07-27 10:15 | NUR ---
REPORT CALLED TO RAKEL AT THE [facility]
--- NOTE | 2019-07-27 11:45 | NUR ---
LULU TO [facility].PT IN STABLE CONDITION IN WITH [facility].
== END 2019-07-27 12:10 | DRG 92 ==
LOC: D.REHAB 17:06
PROVIDERS: ADMIT Emergency Medicine; ATTEND Emergency Medicine
DX: G72.89 Other specified myopathies (principal); M62.82 Rhabdomyolysis; N39.0 Urinary tract infection, site not specified; N17.9 Acute kidney failure, unspecified; E44.0 Moderate protein-calorie malnutrition; R13.11 Dysphagia, oral phase; I48.91 Unspecified atrial fibrillation; E11.9 Type 2 diabetes mellitus without complications; R41.82 Altered mental status, unspecified; F17.200 Nicotine dependence, unspecified, uncomplicated; S82.61XD Displaced fracture of lateral malleolus of right fibula, subsequent encounter for closed fracture with routine healing; R26.9 Unspecified abnormalities of gait and mobility; R53.1 Weakness; R55 Syncope and collapse; E87.6 Hypokalemia; M19.90 Unspecified osteoarthritis, unspecified site